=== PATIENT | female | born 1980 | race Caucasian/White ===

== ENCOUNTER → 2016-06-01 | Outpatient (CLI) | payer MEDICAID | LOC: RAD 09:37 | PROVIDERS: ATTEND Physician Assistant Medical | DX: E05.90 Thyrotoxicosis, unspecified without thyrotoxic crisis or storm (principal) | CPT/HCPCS: 76536 ==

== ENCOUNTER → 2017-01-03 | Outpatient (CLI) | payer MEDICAID ==
--- NOTE | 2017-01-03 18:04 | RADIOLOGY REPORT (SQ) ---
EXAM DESCRIPTION: CHEST PA/LAT COMPLETED DATE/TIME: 01/03/2017 5:52 pm REASON FOR STUDY: Pneumonia of lower lobe due to infectious organism, unspecified laterality COMPARISON: None. EXAM PARAMETERS: NUMBER OF VIEWS: two views TECHNIQUE: Digital Frontal and Lateral radiographic views of the chest acquired. RADIATION DOSE: NA LIMITATIONS: none FINDINGS: LUNGS AND PLEURA: No opacities, masses or pneumothorax. No pleural effusion. MEDIASTINUM AND HILAR STRUCTURES: No masses or contour abnormalities. HEART AND VASCULAR STRUCTURES: Heart normal size. No evidence for failure. BONES: No acute findings. HARDWARE: None in the chest. OTHER: No other significant finding. IMPRESSION: NO SIGNIFICANT RADIOGRAPHIC FINDING IN THE CHEST. TECHNICAL DOCUMENTATION: JOB ID: [id number] [employer]- All Rights Reserved
== END ==
LOC: RAD 17:34
PROVIDERS: ATTEND Nurse Practitioner Family
DX: J18.1 Lobar pneumonia, unspecified organism (principal)
CPT/HCPCS: 71020

== ENCOUNTER 2018-02-04 18:20 | Emergency (ER) | payer MEDICAID ==
[2018-02-04 18:46] VITALS: BP 137/66
[2018-02-04] MEDS ORDERED: RABIES VACCINE (PCEC)/PF 2.5 UNIT/1 ML KIT IM ONE (19:12)
[2018-02-04] MEDS ORDERED: RABIES IMMUNE GLOBULIN INJ/PF 300 UNIT/2 ML SDV IM ONE (19:12)
--- NOTE | 2018-02-04 19:26 | ER Document Report ---
HPI - HPI Pain Level: Denies Notes: Patient is a 37-year-old female with no significant past medical history who presents to the ED requesting rabies vaccination series after being bit by a stray cat 3 days ago to the right fifth digit of the hand.. Patient states that she was evaluated by her primary care doctor who placed her on Augmentin and gave her a tetanus update. Patient states that they were unsuccessful in locating the cat so that they could monitor it for 10 days and quarantine so she was told to come to the emergency department to start rabies. She otherwise has been feeling well. She is eating and drinking without difficulties. No other concerns or complaints. She has not noticed any streaks or purulent discharge from her bite to the right fifth digit. Denies any headache, fever, neck pain, URI, sore throat, chest pain, palpitations, syncope, cough, shortness of breath, wheeze, dyspnea, abdominal pain, nausea/ vomiting/diarrhea, urinary retention, dysuria, hematuria, loss of control of bowel or bladder, numbness/tingling, saddle anesthesia, muscle paralysis/ weakness, or rash. - ROS Systems Reviewed and Negative: Yes All other systems reviewed and negative - CONSTITUTIONAL Constitutional: DENIES: Fever, Chills - EENT EENT: DENIES: Sore Throat, Ear Pain, Eye problems - NEURO Neurology: DENIES: Headache, Weakness, Vision blurred, Dizzinesss / Vertigo - CARDIOVASCULAR Cardiovascular: DENIES: Chest pain - RESPIRATORY Respiratory: DENIES: Trouble Breathing, Coughing - GASTROINTESTINAL Gastrointestinal: DENIES: Abdominal Pain, Black / Bloody Stools - URINARY Urinary: DENIES: Dysuria, Urgency, Frequency - MUSCULOSKELETAL Musculoskeletal: DENIES: Extremity pain Past Medical History - Social History Smoking Status: Current Every Day Smoker Chew tobacco use (# tins/day): No Frequency of alcohol use: None Drug Abuse: None Family History: Reviewed & Not Pertinent Patient has suicidal ideation: No Patient has homicidal ideation: No Renal/ Medical History: Denies: Hx Peritoneal Dialysis Vertical Provider Document - CONSTITUTIONAL Agree With Documented VS: Yes Notes: PHYSICAL EXAMINATION: GENERAL: Well-appearing, well-nourished and in no acute distress. HEAD: Atraumatic, normocephalic. EYES: Pupils equal round and reactive to light, extraocular movements intact, sclera anicteric, conjunctiva are normal. ENT: EAC clear b/l. TM's intact b/l without erythema, fluid, or perforation. Nares patent and without discharge. oropharynx clear without exudates. No tonsilar hypertrophy or erythema. Moist mucous membranes. No sinus tenderness. NECK: Normal range of motion, supple without lymphadenopathy LUNGS: Breath sounds clear to auscultation bilaterally and equal. No wheezes rales or rhonchi. HEART: Regular rate and rhythm without murmurs, rubs, gallops. ABDOMEN: Soft, nontender, nondistended abdomen. No guarding, no rebound. No masses appreciated. Normal bowel sounds present. No CVA tenderness bilaterally. Musculoskeletal: FROM to passive/active. Strength 5+/5. Extremities: No cyanosis, clubbing, or edema b/l. Peripheral pulses 2+. Capillary refill less than 3 seconds. NEUROLOGICAL: Cranial nerves grossly intact. Normal speech, normal gait. Normal sensory, motor exams PSYCH: Normal mood, normal affect. SKIN: There is a puncture wound noted to the right fifth posterior digit of the hand with mild slight erythema without fluctuance, streaks, purulence, or tenderness. - INFECTION CONTROL TRAVEL OUTSIDE OF THE [place] IN LAST 30 DAYS: No Course - Re-evaluation Re-evalutation: 02/04/18 19:23 I thoroughly reviewed the risk and benefit of the rabies vaccination series with the patient. I educated her on the cost, discomfort, probability in the [place], as well as her risk of from adverse reaction to the vaccine /RIG. Patient verbalized understanding of the risk and benefit of the rabies series and would like to pursue with getting the RIG and vaccine. Calculation sheet was filled out and faxed to pharmacy. Consent form was obtained. 02/04/18 20:37 Patient is an afebrile, well-hydrated, 37-year-old female who presents to the ED for a cat bite to the right hand. Vitals are acceptable. PE is otherwise unremarkable. Patient is already on Augmentin and already received her tetanus update 3 days ago. Rabies series was provided to the patient at this time. She is to return on day 3, 7, 14, and 28 as directed. She is nontoxic- appearing and is tolerating p.o. without difficulties. No other labs or imaging warranted at this time. Recheck with your PCM in 3-5 days. Return to the ED with any worsening/concerning symptoms otherwise as reviewed in discharge. Patient is in agreement. - Vital Signs Vital signs: Temp Pulse Resp BP Pulse Ox 98.7 F 100 16 137/66 H 100 02/04/18 18:36 02/04/18 18:36 02/04/18 18:36 02/04/18 18:36 02/04/18 18:36 Discharge - Discharge Clinical Impression: Cat bite involving extremity Condition: Stable Disposition: HOME, SELF-CARE Instructions: Animal Bites ([facility]), Rabies Prophyllaxis ([facility]) Additional Instructions: Keep the skin clean Wash with soap and water Tylenol/ibuprofen if needed Triple antibiotic ointment daily Take medication as directed Monitor for any worsening symptoms Recheck with your PCM in 3-5 days Return to the ED with any worsening symptoms and/or development of fever, headache, chest pain, palpitations, syncope, shortness of breath, trouble breathing, abdominal pain, n/v/d, abscess, purulent discharge, red streaks, worsening swelling, or other worsening symptoms that are concerning to you. Return to the emergency department as directed for your rabies vaccination series on the days discussed and provided. Forms: Elevated Blood Pressure, Smoking Cessation Education Referrals: JERRY FRYE NP [Primary Care Provider] - Follow up in 3-5 days
== END 2018-02-04 20:41 | disposition home or self-care (01) ==
LOC: ER 18:20
DX: S61.256A Open bite of right little finger without damage to nail, initial encounter (principal); W55.01XA Bitten by cat, initial encounter; Z20.3 Contact with and (suspected) exposure to rabies; F17.200 Nicotine dependence, unspecified, uncomplicated
CPT/HCPCS: 90376; 90471; 90675; 96372; 99283